=== PATIENT | female | born 1950 | race Caucasian/White ===

== ENCOUNTER 2020-08-03 17:05 | Emergency (ER) | payer MEDICARE, OTHER ==
[2020-11-23] MEDS ORDERED: ZOLOFT100 MG PO (10:18)
[2020-11-23] MEDS ORDERED: JARDIANCE25 MG PO (10:18)
[2020-11-23] MEDS ORDERED: GLUCOPHAGE1000 MG PO (10:18)
[2020-11-23] MEDS ORDERED: AMARYL2 MG PO ×2 (10:19)
[2020-11-23] MEDS ORDERED: LEVOTHYROXINE75 MC1 PO (10:19)
[2020-11-23] MEDS ORDERED: HYDROCHLOROTHIA25 MG PO (10:20)
[2020-11-23] MEDS ORDERED: MOBIC15 MG PO (10:21)
[2020-11-23] MEDS ORDERED: LISINOPRIL40 MG PO (10:21)
[2020-11-23] MEDS ORDERED: ZOCOR40 MG PO (10:22)
[2020-11-23] MEDS ORDERED: PROTONIX40 MG PO (10:22)
[2020-11-26] MEDS ORDERED: HYDROCODON-ACE1 EAC4 PO (09:48)
== END 2020-08-04 00:22 | disposition home or self-care (01) ==
LOC: ER1 17:05
DX: U07.1 COVID-19 (principal); E10.9 Type 1 diabetes mellitus without complications; J40 Bronchitis, not specified as acute or chronic; I10 Essential (primary) hypertension; Z90.49 Acquired absence of other specified parts of digestive tract; Z98.84 Bariatric surgery status
CPT/HCPCS: 71045; 99283; M0239

== ENCOUNTER → 2020-11-23 | Outpatient (CLI) | payer MEDICARE, OTHER ==
[~2020-11-23] MED LIST: AMARYL2 MG PO; GLUCOPHAGE1000 MG PO; HYDROCHLOROTHIA25 MG PO; HYDROCODON-ACE1 EAC4 PO; JARDIANCE25 MG PO; LEVOTHYROXINE75 MC1 PO; LISINOPRIL40 MG PO; MOBIC15 MG PO; PROTONIX40 MG PO; ZOCOR40 MG PO; ZOLOFT100 MG PO
[2020-11-23 10:18] LABS: HEMOGLOBIN 13.1 gm/dl (12.3-15.3); RED BLOOD COUNT 4.56 M/UL (4.00-5.10); WHITE BLOOD COUNT 4.3 K/UL (4.5-11.0)
[2020-11-23 10:40] LABS: BUN/CREATININE RATIO 18 (0-10)
== END ==
LOC: OPSV2 09:00
PROVIDERS: Anesthesiology; Obstetrics & Gynecology
DX: Z01.818 Encounter for other preprocedural examination (principal); N84.0 Polyp of corpus uteri; Z20.822 Contact with and (suspected) exposure to COVID-19
CPT/HCPCS: 36415; 71046; 80048; 81001; 85025; 93005; U0003

== ENCOUNTER → 2020-11-26 | Day surgery (SDC) | payer MEDICARE, OTHER | END | disposition home or self-care (01) | LOC: OR 06:35 | DX: N84.0 Polyp of corpus uteri (principal); K21.9 Gastro-esophageal reflux disease without esophagitis; I10 Essential (primary) hypertension; E07.9 Disorder of thyroid, unspecified; K62.9 Disease of anus and rectum, unspecified; L91.8 Other hypertrophic disorders of the skin; N95.0 Postmenopausal bleeding; N95.9 Unspecified menopausal and perimenopausal disorder; N90.5 Atrophy of vulva; E11.9 Type 2 diabetes mellitus without complications; E78.5 Hyperlipidemia, unspecified; G47.30 Sleep apnea, unspecified; K76.0 Fatty (change of) liver, not elsewhere classified | CPT/HCPCS: 82962; J1100; J2250; J2405; J2704; J2795; J3010; J7120 ==

== ENCOUNTER → 2021-03-03 | Outpatient (CLI) | payer MEDICARE, OTHER | LOC: EMI 10:00 | DX: M25.511 Pain in right shoulder (principal); M19.011 Primary osteoarthritis, right shoulder; M25.711 Osteophyte, right shoulder | CPT/HCPCS: 73221 ==